=== PATIENT | female | born 1950 | race Caucasian/White ===

== ENCOUNTER → 2021-02-03 00:13 | Outpatient (CLI) | payer SELFPAY ==
[2021-02-03 00:36] LABS: HEMATOCRIT 39.3 % (36.0-48.0); HEMOGLOBIN 12.5 g/dL (12-16); LYMPHOCYTES 31.1 % (15-50); MCH 30.9 pg (26.0-34.0); MCHC 31.8 g/dL (31.0-37.0); MEAN PLATELET VOLUME 10.8 fL (7.4-10.4); NEUTROPHILS 53.4 % (40-80); PLATELET COUNT 280 10x3/uL (130-400); RBC 4.05 10x6/uL (4.00-5.40); RDW 13.8 % (11.5-14.5); WBC 5.3 10x3/uL (4.8-10.8)
[2021-02-03 01:02] LABS: ANION GAP 14.7 mmol/L (8-16); C-REACTIVE PROTEIN 2.1 mg/dL (0.0-0.9); CALCIUM 9.2 mg/dL (8.5-10.1); CARBON DIOXIDE 28.4 mmol/L (21.0-32.0); CREATININE - SERUM 1.4 mg/dL (0.6-1.3); POTASSIUM - SERUM 5.1 mmol/L (3.5-5.1)
[2021-02-03 01:37] LABS: ERYTHROCYTE SEDIMENTATION RATE 33 mm/hr (0-30)
== END | disposition home or self-care (01) ==
LOC: D.LABREF 00:13
PROVIDERS: ATTEND Orthopaedic Surgery
DX: M25.562 Pain in left knee (principal)

== ENCOUNTER → 2021-02-16 09:10 | Outpatient (CLI) | payer MEDICARE | END | disposition home or self-care (01) | LOC: D.NM 09:00 | PROVIDERS: ATTEND Orthopaedic Surgery | DX: Z96.652 Presence of left artificial knee joint (principal) ==